=== PATIENT | female | born 2000 | race Caucasian/White ===

== ENCOUNTER 2022-09-27 21:07 | Emergency (ER) | payer OTHER ==
[2022-09-27 23:27] LABS: SARS-COV-2 RT PCR NEGATIVE (NEGATIVE)
--- NOTE | 2022-09-27 23:36 | EDPHYS ---
Physician Documentation [facility] Name: Ruba Moya Age: 22 yrs Sex: Female : 2000 Arrival Date: 09/27/2022 Time: 21:11 Bed DIS3 Private MD: ED Physician Jerome Gould HPI: 09/27 22:10 This 22 yrs old Female presents to ER via Ambulatory with complaints of Fever, Runny cp Nose, Headache. 22:10 The patient reports fever, not measured (subjective). cp 22:10 Onset: The symptoms/episode began/occurred 2 day(s) ago. Associated signs and symptoms: cp Pertinent positives: cough, headache, runny nose, sore throat. Severity of symptoms: in the emergency department the symptoms are unchanged despite home interventions. 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 - Social history:: Smoking status: Reported history of juuling and/or vaping. ROS: 22:15 Constitutional: Negative for fever, poor PO intake. cp 22:15 Eyes: Negative for injury, pain, redness, and discharge. cp 22:15 ENT: Positive for sore throat, Negative for drainage from ear(s), ear pain, difficulty swallowing, difficulty handling secretions. 22:15 Respiratory: Positive for cough, Negative for shortness of breath, wheezing. 22:15 Abdomen/GI: Negative for abdominal pain, vomiting, diarrhea, constipation. 22:15 : Negative for urinary symptoms. 22:15 Skin: Negative for rash. 22:15 Neuro: Positive for headache, Negative for altered mental status, weakness. 22:15 All other systems are negative. Exam: 22:20 Head/Face: Normocephalic, atraumatic. cp 22:20 Constitutional: The patient appears in no acute distress, alert, awake, non-toxic, well developed, well nourished. 22:20 Eyes: Periorbital structures: appear normal, Conjunctiva: normal, no exudate, no cp injection, Sclera: no appreciated abnormality, Lids and lashes: appear normal, bilaterally. 22:20 ENT: External ear(s): are unremarkable, Ear canal(s): are normal, clear, TM's: dullness, bilaterally, Nose: is normal, Mouth: Lips: moist, Oral mucosa: moist, Posterior pharynx: Airway: no evidence of obstruction, patent, Tonsils: with erythema, no enlargement, no exudate, erythema, that is mild, exudate, is not appreciated. 22:20 Neck: ROM/movement: is normal, is supple, without pain, no range of motions limitations, no meningismus, Lymph nodes: no appreciated lymphadenopathy. 22:20 Chest/axilla: Inspection: normal. 22:20 Cardiovascular: Rate: tachycardic, Rhythm: regular. 22:20 Respiratory: the patient does not display signs of respiratory distress, Respirations: normal, no use of accessory muscles, no retractions, labored breathing, is not present, Breath sounds: decreased breath sounds, are not appreciated, stridor, is not appreciated, + upper airway congestion. wheezing: is not appreciated. 22:20 Abdomen/GI: Inspection: gravid appearance, is noted. 22:20 Back: CVA tenderness, is absent. 22:20 Skin: no rash present. Vital Signs: 21:16 BP 128 / 80; Pulse 109; Resp 17; Temp 98.8(O); Pulse Ox 99% on R/A; Weight 68.49 kg ll3 (R); Height 5 ft. 6 in. (167.64 cm); 21:16 Body Mass Index 24.37 (68.49 kg, 167.64 cm) ll3 MDM: 21:25 Patient medically screened. cp 22:30 Differential diagnosis: viral Infection, bacterial infection, bronchitis, pneumonia cp UTI, gastroenteritis, meningitis. 23:35 Data reviewed: vital signs, nurses notes, lab test result(s). cp 23:35 Counseling: I had a detailed discussion with the patient and/or guardian regarding: the cp historical points, exam findings, and any diagnostic results supporting the discharge/admit diagnosis, lab results, to return to the emergency department if symptoms worsen or persist or if there are any questions or concerns that arise at home. ED course: VSS. Patient appears non-toxic and no signs of respiratory distress. Will discharge to home for continued monitoring. 09/27 22:09 Order name: Strep; Complete Time: 23:32 cp 09/27 22:09 Order name: COVID-19/FLU A+B; Complete Time: 23:32 cp 09/27 23:33 Interpretation: Normal except: INFLUENZA A POSITIVE. cp 09/27 23:01 Order name: Throat Culture EDMS 09/27 23:32 Order name: FHT's; Complete Time: 00:04 cp Administered Medications: 09/28 00:04 Drug: Tamiflu (oseltamivir) 75 mg Route: PO; ll3 Disposition Summary: 09/27/22 23:35 Discharge Ordered Location: Home cp Problem: new cp Symptoms: are unchanged cp Condition: Stable cp Diagnosis - Influenza due to identified novel influenza A virus with other respiratory cp manifestations Followup: cp - With: Private Physician - When: 2 - 3 days - Reason: Worsening of condition Discharge Instructions: - Discharge Summary Sheet cp - Influenza, Adult cp Forms: - Medication Reconciliation Form cp - Thank You Letter cp - Antibiotic Education cp - Prescription Opioid Use cp Prescriptions: - Tamiflu 75 mg Oral Capsule - take 1 capsule by ORAL route every 12 hours for 5 days; 10 capsule; Refills: 0, cp Product Selection Permitted Signatures: Dispatcher [employer] EDMS David Ward PA PA cp Loubet, Lynsea, RN RN ll3
--- NOTE | 2022-09-27 23:36 | ER ---
Nurse's Notes [facility] Name: Ruba Moya Age: 22 yrs Sex: Female : 2000 Arrival Date: 09/27/2022 Time: 21:11 Bed DIS3 Private MD: Diagnosis: Influenza due to identified novel influenza A virus with other respiratory manifestations Presentation: 09/27 21:16 Chief complaint: Patient states: C/o runny nose, sore throat, H/A, fevers since 3 friday. Coronavirus screen: Vaccine status: Patient reports being unvaccinated. cough unrelated to allergies, fever, headache, muscle pain, runny nose, sore throat. Ebola Screen: No symptoms or risks identified at this time. Initial Sepsis Screen: Does the patient meet any 2 criteria? No. Patient's initial sepsis screen is negative. Does the patient have a suspected source of infection? No. Patient's initial sepsis screen is negative. Risk Assessment: Do you want to hurt yourself or someone else? Patient reports no desire to harm self or others. Onset of symptoms was September 24, 2022. 21:16 Method Of Arrival: Ambulatory 3 21:16 Acuity: CHRISTIANO 3 ll3 Triage Assessment: 21:19 Headache History: The patient has had previous headaches and this one is similar to 3 previous episodes. General: Appears in no apparent distress. uncomfortable, Behavior is calm, cooperative. General: Reports fever for 1-2 days. Pain: Denies pain. Pain: Pain Pain began Also complains of. Neuro: Level of Consciousness is awake, alert, obeys commands, Oriented to person, place, time, situation, Reports headache in right in left parietal area. Respiratory: Reports cough that is productive, Respiratory effort is even, unlabored, Respiratory pattern is regular, symmetrical. Derm: Skin is pink, warm \T\ dry. 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 - Social history:: Smoking status: Reported history of juuling and/or vaping. Screenin/26 00:04 Abuse screen: Denies threats or abuse. Denies injuries from another. Nutritional ll3 screening: No deficits noted. Tuberculosis screening: No symptoms or risk factors identified. Fall Risk None identified. Vital Signs: 09/27 21:16 BP 128 / 80; Pulse 109; Resp 17; Temp 98.8(O); Pulse Ox 99% on R/A; Weight 68.49 kg ll3 (R); Height 5 ft. 6 in. (167.64 cm); 21:16 Body Mass Index 24.37 (68.49 kg, 167.64 cm) ll3 Vitals: 09/28 00:04 Heart Tones 146. ll3 ED Course: 09/27 21:11 Patient arrived in ED. bp1 21:15 David Ward PA is PHCP. cp 21:15 Jerome Gould MD is Attending Physician. cp 21:19 Triage completed. ll3 21:19 Arm band placed on. ll3 22:36 Strep Sent. tw5 22:36 COVID-19/FLU A+B Sent. tw5 23:30 Throat Culture Sent. tw5 09/28 00:04 Patient has correct armband on for positive identification. Bed in low position. Call ll3 light in reach. Side rails up X 1. 00:04 No provider procedures requiring assistance completed. IV discontinued, intact, ll3 bleeding controlled, No redness/swelling at site. Pressure dressing applied. Administered Medications: 00:04 Drug: Tamiflu (oseltamivir) 75 mg Route: PO; ll3 Medication: 00:05 VIS not applicable for this client. ll3 Outcome: 09/27 23:35 Discharge ordered by . cp 09/28 00:04 Discharged to home ambulatory, with significant other. ll3 Condition: stable Discharge instructions given to patient, significant other, Instructed on discharge instructions, follow up and referral plans. medication usage, Demonstrated understanding of instructions, follow-up care, medications, Prescriptions given X 1. 00:05 Patient left the ED. ll3 Signatures: David Ward PA PA cp Paniauga, Brittany bp1 Monet Keene tw5 Korey Negron RN RN ll3
[2022-09-27] MEDS ORDERED: OSELTAMIVIR 75 MG CAP ONE (23:54)
[2022-09-28 00:16] VITALS: BP 128/80; TEMP 98.8; O2SAT 99
== END 2022-09-28 00:05 | disposition home or self-care (01) ==
LOC: ER 21:07
DX: J10.1 Influenza due to other identified influenza virus with other respiratory manifestations (principal); Z20.822 Contact with and (suspected) exposure to COVID-19; Z88.0 Allergy status to penicillin; Z88.1 Allergy status to other antibiotic agents; Z88.5 Allergy status to narcotic agent
CPT/HCPCS: 87070; 87081; 0240U; 99284

== ENCOUNTER 2022-12-04 01:41 | Inpatient (IN) | payer OTHER ==
[~2022-12-04 01:41] MED LIST: LIDOCAINE 1% MPF 30 ML VIAL SQ ONE; OXYTOCIN/LR 20 UNIT/1,000 ML BAG IV SCH
[2022-12-04] MEDS ORDERED: PROMETHAZINE INJ 25 MG/ML AMP IM PRN (02:01)
[2022-12-04] MEDS ORDERED: Ringers Lactate 1,000 ML IV PRN (02:01)
[2022-12-04] MEDS ORDERED: CARBOPROST TROME 250 MCG/ML IM PRN (02:01)
[2022-12-04] MEDS ORDERED: BUTORPHANOL 1 MG/ML INJ IV PRN (02:01)
[2022-12-04] MEDS ORDERED: METHYLERGONOVINE 0.2MG/ML AMP IM PRN (02:01)
[2022-12-04] MEDS ORDERED: FENTANYL CITR 100 MCG/2 ML IV ONE (02:12)
[2022-12-04] MEDS ORDERED: BUPIVACAINE 0.25% PF 10 ML VIAL IJ PRN (02:12)
[2022-12-04] MEDS ORDERED: FENTANYL/BUPIVACAINE/NS/PF 200 MCG/100 ML BAG EP PRN (02:12)
[2022-12-04 02:36] LABS: Absolute Lymphocytes (CBC) 1.5 K/uL (0.7-4.9); Hematocrit 36.1 % (36.0-45.0); Lymphocytes % 10.4 % (15.3-44.8); MCV 88.5 fL (80-100); MPV 8.2 fL (7.6-11.3); RBC Red Blood Cell Count 4.08 M/uL (3.86-4.86)
[2022-12-04 02:43] LABS: RPR (Rapid Plasma Reagin) NON-REACT (NON-REACT)
[2022-12-04 02:59] VITALS: BMI 29.3
[2022-12-04] MEDS ORDERED: Ringers Lactate 1,000 ML IV SCH (03:00)
[2022-12-04 03:54] LABS: Hepatitis B surface AG Interp. Nonreactive (Nonreactive)
--- NOTE | 2022-12-04 11:26 | PREOPHP ---
Date of Admission: 12/04/2022 History Of Present Illness: A 22-year-old primigravida 38 weeks 6 days experienced spontaneous ruptu re of membranes at midnight last night, came in early labor. She is now on Pitocin augmentation. Ce rvical exam shows approximately 3 cm, 70% effaced, vertex, well applied. Fluid clear. FHTs have not shown significant variability, but have shown no decelerations. Baby according to the patient has b een very active during the latter part of the . Family History: Demonstrates a grandmother with stomach ulcers and another grandmother with diabetes . Past Medical History: Patient has had ears, nose, and throat surgery at the age of 8, mostly tubes p laced in ears. Allergies: APPARENTLY, IS ALLERGIC TO OMNICEF AND CODEINE. Social History: She vapes. Medications: She has been taking Nexium in the past for gas and acid reflux. Physical Examination: HEENT: Clear. Pupils equal, round, reactive to light and accommodation. Conjunctivae well perfused . No oral, lingual, or buccal lesions. Chest and Lungs: Have been clear. Heart: Midline, without problems in the past on auscultation. Abdomen: Term size. Extremities: Clear. Pelvic: As stated. Assessment And Plan: Admission talk given. She is strep negative. Rh positive, immune to rubella. KELINC/MODL Voice ID: [id number]
--- NOTE | 2022-12-04 12:08 | PN ---
The Stadol has worn off. Patient is more alert, so is the baby. She has had her epidural. She is n ow 5.5 cm, 90% effaced, vertex, -1 station. Mohsen regularly. She was only on 2 milliunits whe n it was thought she was on 6, now she is on 6 and we will increase that a little bit more as the lab or progresses. She is quite comfortable and in fact she is so numb that she cannot really feel her l egs and cannot feel the contractions. We will probably reduce the maintenance dose on the epidural s lightly as she gets closer to delivery. Her blood pressures were 88/50 right now, she is being hydra lori. Obviously, the epidural had some effect on that and we will try to get her blood pressures back to a more normal range, but she and her baby looked good. DAMIEN/SIMBA Voice ID: [id number] Report ID: [id number]
[2022-12-04] MEDS ORDERED: NA CIT/CITRIC AC 30 ML ORAL UDC ONE (12:33)
[2022-12-04] MEDS ORDERED: FAMOTIDINE 20 MG/2 ML VIAL IV ONE (12:33)
[2022-12-04] MEDS ORDERED: METOCLOPRAMIDE 10 MG/2mL INJ ONE (12:33)
[2022-12-04] MEDS ORDERED: CEFAZOLIN SODIUM 2 GM/VIAL ONE (12:41)
[2022-12-04] MEDS ORDERED: NA CHLORIDE 0.9% 100 ML ONE (12:42)
[2022-12-04] MEDS ORDERED: LIDOCAINE 2% W/EPI 1:200,000 MPF 20 ML VIAL IM ONE (12:51)
[2022-12-04] MEDS ORDERED: OXYTOCIN 10 UNIT/ML ML ONE ×3 (13:11→23:58)
[2022-12-04] MEDS ORDERED: NS 0.9% VIAL 10 ML ONE (13:27)
[2022-12-04] MEDS ORDERED: MORPHINE SULFATE/PF 1 MG/ML (10 ML AMP) ONE (13:27)
[2022-12-04] MEDS ORDERED: BISACODYL 10 MG RECTAL SUPP PR PRN (13:48)
[2022-12-04] MEDS ORDERED: KETOROLAC 30 MG/ML INJ IM PRN (13:48)
[2022-12-04] MEDS ORDERED: ONDANSETRON 4 MG/2 ML VIAL IV PRN (13:48)
[2022-12-04] MEDS ORDERED: ACETAMINOPHEN 500 MG TAB PO PRN ×2 (13:48)
[2022-12-04] MEDS ORDERED: Oxycodone HCl/Acetaminophen 1 TAB TAB PO PRN (13:48)
[2022-12-04] MEDS ORDERED: DIPHENHYDRAMINE 25 MG TAB/CAP PO PRN (13:48)
[2022-12-04] MEDS ORDERED: IBUPROFEN 200 MG TAB PO PRN (13:48)
[2022-12-04] MEDS ORDERED: ONDANSETRON 4 MG (ODT) TAB PO PRN (13:48)
[2022-12-04] MEDS ORDERED: D5LR 1,000 ML with OXYTOCIN 20 UNIT IV SCH ×2 (14:00)
[2022-12-04] MEDS: KETOROLAC 30 MG/ML INJ IV PRN (16:23)
--- NOTE | 2022-12-04 16:29 | PN ---
Patient is about 6.5 cm, with baby still high in a straight occiput posterior. Scalp electrode has b een placed, although variability really still looks pretty good. We will start pelvic rocking. We n eed to continue to increase the Pitocin. If the baby rotates, I think things will go much quicker. DAMIEN/SIMBA Voice ID: [id number] Report ID: [id number]
[2022-12-04 17:51] VITALS: O2SAT 100
[2022-12-04] MEDS ORDERED: CEFAZOLIN SODIUM 2 GM in NA CHLORIDE 0.9% 100 ML IVPB ONE (21:00)
[2022-12-04] MEDS: OXYTOCIN/LR 20 UNIT/1,000 ML BAG IV SCH (23:00)
--- NOTE | 2022-12-05 | OP ---
Surgeon: Arturo Hammer MD Procedure In Detail: A 22-year-old primigravida. Spontaneous rupture of membranes at midnight last night, came to Labor and Delivery area, was in early labor. Only 1 cm dilated. Was started on Pitoci n, received Stadol 1 mg IV, Phenergan 25 mg IM initially. At approximately 3-4 cm requested and rece ived epidural anesthesia. The baby was noted to be occiput posterior and never really descended belo w -1 at the most. The bones of the head, probably -2 station, but well applied. The baby started davis ving decelerations that could be late, although they were not deep and there was variability during t he contractions. The patient progressed to approximately 6.5 to 7 cm, but the vertex never descended . It was decided because of nonreassuring heart rate to proceed with section. Epidural ane sthesia, which patient had, was used quite effectively. Dr. Marie for anesthesia. Dr. Lopez for administrative assistant coordinator surgeon. The patient was taken to surgery and prepped and draped. A Pfannenstiel incisio n was created after time-out was performed. The incision was carried to the fascia and the fascia in cised and incision carried transversely bilaterally with Begum scissors. Anterior fascial plane was d eveloped with both blunt and sharp dissection and underlying rectus muscle and peritoneum e ntered. Low transverse uterine incision created. Approximately 6.5 pound male was delivered, occiput posterior and asynclitic. The cord was wrapped around the baby's body at least twice. Baby was handed off to Pediatrics for resuscitation. Apgars to be assigned by Pediatrics. It was actual ly necessary to intubate the baby and baby responded quite quickly to resuscitation efforts. Dr. Vince srivastava intubated and removed the tube within a few minutes as baby responded quickly and is now in the nursery, crying and looking around. Cord blood specimen was obtained. The placenta was removed manu ally. Uterus was exteriorized. Uterus was closed with a running locked stitch of 1 chromic followed by a second [id number] stitch in the left angle for complete hemostasis. Estimated blood loss during the procedure 700 to 750 cc. Uterus replaced in the peritoneal cavity. Gutters cleared off c lot and blood. Incision line inspected again. No further bleeding. The rectus muscles were reappro ximated using 2 stitches of 0 Vicryl. One Vicryl was used to close the fascia running from either an gle to midline. 2-0 plain used to close subcutaneous tissue. Kihei used for the skin. The patien t had been given 2 g of Ancef prior to the procedure and will be given 2 g postoperatively [address] Tolerated all procedures well. Transferred back to her room in good condition. Final Diagnoses: Term intrauterine . Nonreassuring heart tones. Primary se ction. Epidural anesthesia. Drifton resuscitation. NBC/MODL Voice ID: [id number] Report ID: [id number]
[2022-12-05] MEDS: KETOROLAC 30 MG/ML INJ IV PRN (00:34)
--- NOTE | 2022-12-05 07:13 | PN ---
The patient is very alert this morning. She has already been up and moving around the room. Baby is breast feeding. Baby is crying right now and looks very good. No reported problems. H and H with expected change. Pulse is low to high, but lochia is normal. I do not suspect anything as far as bl ood loss being the cause. We will discontinue her Apple and IV around mid day. Full postoperative t alk given. We will begin p.o. intake when the patient has an appetite. Right now, she is just thirs ty. Cleaning of the incision, importance of ambulation discussed. Post talk as far as report ing fever, severe pain, heavy bleeding when she goes home. If all goes well, we will probably send h er home tomorrow afternoon. Returning next week to my office for staple removal. She has had her Td ap shot already. She has no post epidural problems. Doing quite well. DAMIEN/SIMBA Voice ID: [id number] Report ID: [id number]
[2022-12-05] MEDS: OXYTOCIN/LR 20 UNIT/1,000 ML BAG IV SCH (07:14)
[2022-12-05] MEDS ORDERED: MAGNESIUM HYDROXIDE 8% 30 ML PO PRN (13:48)
[2022-12-05] MEDS: Oxycodone HCl/Acetaminophen 1 TAB TAB PO PRN ×2 (14:07→21:10)
[2022-12-05 21:09] LABS: Absolute Lymphocytes (CBC) 0.6 K/uL (0.7-4.9); Hematocrit 32.7 % (36.0-45.0); Lymphocytes % 4.2 % (15.3-44.8); MCV 88.2 fL (80-100); MPV 7.7 fL (7.6-11.3); RBC Red Blood Cell Count 3.71 M/uL (3.86-4.86)
[2022-12-05] MEDS ORDERED: CEFTRIAXONE 1000 MG/VIAL IM ONE (21:14)
[2022-12-05] MEDS ORDERED: CEFTRIAXONE 1000 MG/VIAL ONE (21:15)
[2022-12-05] MEDS ORDERED: NA CHLORIDE 0.9% 0 ML ONE (21:16)
[2022-12-05] MEDS ORDERED: LIDOCAINE 1% MPF 5 ML VIAL ONE (21:19)
[2022-12-06] MEDS: Oxycodone HCl/Acetaminophen 1 TAB TAB PO PRN (05:43)
[2022-12-06] MEDS: IBUPROFEN 600 MG TAB PO PRN ×2 (07:22→13:10)
--- NOTE | 2022-12-06 07:59 | PN ---
The patient was noted to have slight tachycardia yesterday, at one point it went to 123. All temperatures have been normal at that point. Sometime slightly thereafter, though her temperature spiked to over 100. CBC was ordered. H and H stayed the same, but white count was 14,000 on admission, had gone to slightly over 15,000. At that point, the patient was started on Rocephin 1 g IM, Cleocin __300 mg p.o. q.8 hours. Her calves are normal. No signs of any phlebitis. Her incision looks good. She is breathing well. Her breasts are not engorged. She is taking fluids well, feels relatively good. Her 6-year-old had a viral infection prior to her coming to the hospital, but I do not think that is what we were dealing with. We will aggressively treat what is probably a postoperative endometritis. The goal is to go 24 hours without any temperature over____100 degrees and then we will send the patient home at that point. She knows that could be this time tomorrow or it could be later depending upon what her temperatures do. Full discussion with the patient. She has no complaints or problems. She knows to push fluids on herself. Right now, we have a Hep-Lock. We will try to avoid starting another IV unless necessary. DAMIEN/SIMBA Voice ID: [id number] Report ID: [id number] GERRY
[2022-12-06] MEDS: METHYLERGONOVINE 0.2 MG TAB PO PRN ×4 (08:03→20:46)
[2022-12-06] MEDS: CEFTRIAXONE 1,000 MG in NA CHLORIDE 0.9% 50 ML IVPB SCH ×2 (08:46→20:46)
[2022-12-06] MEDS ORDERED: CEFTRIAXONE 1000 MG/VIAL ONE ×2 (20:05→21:12)
[2022-12-06] MEDS ORDERED: LIDOCAINE 2% MPF 5 ML VIAL ONE (21:12)
[2022-12-06] MEDS ORDERED: CEFTRIAXONE 1000 MG/VIAL IM ONE (21:21)
[2022-12-07] MEDS: IBUPROFEN 600 MG TAB PO PRN ×2 (03:49→09:29)
[2022-12-07 07:26] VITALS: TEMP 97.7
--- NOTE | 2022-12-07 07:56 | DS ---
Hospital Course: A 22-year-old primigravida 38 weeks 6 days, experienced spontaneous rupture of bret pak, came to Labor and Delivery area for assessment. Noted to have gross rupture of membranes, 1 c m vertex and in early labor. Started on Pitocin augmentation. Received Stadol IV, Phenergan IM 1 do se, and approximately 3-4 cm epidural anesthesia. The patient was noted to be occiput posterior, abo ut -1, -2 station, progressed to 7 cm, but never descended the vertex. Showed no progress in labor p reji heart tones became non-reassuring, therefore a section was discussed and agreed up on. The section was performed under epidural anesthesia. It was quite effective. Estimate d blood loss 700 to 750 cc. Baby was born and needed resuscitation, is doing quite well at this poin t. Patient is Rh negative, immune to Rubella. Postoperatively, developed a temperature elevation wi th mild leukocytosis of 15,000. Incision looked good. The entire time the legs were clear. Lungs w ere basically clear. She was started on antibiotics and now is on 24 hours or more without temperatu re elevation over 100 degrees. She is requesting dismissal this morning or early afternoon. We will get 1 more dose of Rocephin 1 g IM. We will send her home with Cleocin 300 mg p.o. q.6 hours for 5 additional days. She is to report any temperature elevation of 100 degrees or greater, severe pain, heavy bleeding, or any other type of abnormalities. She will call the office on Friday. We will see her on Friday or for staple removal. Baby has done quite well in the postoperative ila od and patient has no complaints or problems. She is last taking Motrin for analgesia, but we will g geovani her some tramadol to take with her from the local pharmacy in case she needs something stronger. Final Diagnoses: Term intrauterine , primary section, epidural anesthesia, postope rative mild endometritis, now resolved. DAMIEN/DERIANL Voice ID: [id number] Report ID: [id number]
[2022-12-07] MEDS ORDERED: CEFTRIAXONE 1000 MG/VIAL IM ONE (10:00)
[2022-12-07] MEDS ORDERED: WATER FOR INJ,STERILE 0 ML ONE (10:02)
[2022-12-07] MEDS ORDERED: LIDOCAINE 1% MPF 5 ML VIAL IM ONE (11:00)
[2022-12-07 12:02] VITALS: BP 124/72
== END 2022-12-07 11:30 | disposition home or self-care (01) | DRG 788 ==
LOC: 2ND-WC 01:41
PROVIDERS: ADMIT Specialist; ATTEND Specialist
PROC: 3E0234Z Introduction of Serum, Toxoid and Vaccine into Muscle, Percutaneous Approach (ICD-10-PCS; 2022-12-04)
PROC: 10D00Z1 Extraction of Products of Conception, Low, Open Approach (ICD-10-PCS; principal; 2022-12-04 13:09)
DX: O76 Abnormality in fetal heart rate and rhythm complicating labor and delivery (principal); O69.89X0 Labor and delivery complicated by other cord complications, not applicable or unspecified; Z3A.38 38 weeks gestation of pregnancy; Z37.0 Single live birth; Z23 Encounter for immunization; O75.4 Other complications of obstetric surgery and procedures; N71.9 Inflammatory disease of uterus, unspecified
CPT/HCPCS: 36415; 85014; 85025; 86592; 86850; 86900; 86901; 87340; 88307; A4216; J0595; J2001; J2210; J2550; J2590; J2765; J3010; J7120; J7121

== ENCOUNTER → 2023-11-28 | Emergency (ER) | payer SELFPAY ==
[2023-11-28 12:18] LABS: SARS-CoV-2 Antigen Rapid Res Positive (Negative)
--- NOTE | 2023-11-28 13:02 | EDPHYS ---
Physician Documentation [facility] Name: Ruba Moya Age: 23 yrs Sex: Female : 2000 Arrival Date: 11/28/2023 Time: 10:56 Bed DIS3 Private MD: ED Physician Jesse Garcia HPI: 11/28 11:07 This 23 yrs old Other Female presents to ER via Unassigned with complaints of Covid sp4 Exposure. 11:38 23-year-old female presents to the emergency room for evaluation for acute viral sp4 illness. Patient states she has had nasal congestion starting today. One of the patient's family is positive with COVID. Historical: - Allergies: 11:15 Omnicef; ll1 11:15 Codeine; ll1 11:15 PENICILLINS; ll1 - PMHx: 11:15 None; ll1 - PSHx: 11:15 ENT SX; ll1 - Immunization history:: Adult Immunizations up to date. - Social history:: Smoking status: Patient denies any tobacco usage or history of. - Family history:: not pertinent. ROS: 11:42 Constitutional: Negative for fever, chills, and weight loss, Eyes: Negative for injury, sp4 pain, redness, and discharge, ENT: Negative for injury, pain, positive for congestion 11:42 All other systems are negative, Exam: 11:42 Constitutional: This is a well developed, well nourished patient who is awake, alert, sp4 and in no acute distress. Head/Face: Normocephalic, atraumatic. Eyes: Pupils equal round and reactive to light, extra-ocular motions intact. Lids and lashes normal. Conjunctiva and sclera are not injected. Cornea within normal limits. Periorbital areas with no swelling, redness, or edema. ENT: Nares patent. No nasal discharge, no septal abnormalities noted. Tympanic membranes are normal and external auditory canals are clear. Oropharynx with no redness, swelling, or masses, exudates, or evidence of obstruction, uvula midline. Mucous membranes moist. Neck: Trachea midline, no thyromegaly or masses palpated, and no cervical lymphadenopathy. Supple, full range of motion without nuchal rigidity, or vertebral point tenderness. Chest/axilla: Normal chest wall appearance and motion. Nontender with no deformity. No lesions are appreciated. Cardiovascular: Regular rate and rhythm with a normal S1 and S2. No gallops, murmurs, or rubs. Normal PMI, no JVD. No pulse deficits. Respiratory: Lungs have equal breath sounds bilaterally, clear to auscultation and percussion. No rales, rhonchi or wheezes noted. No increased work of breathing, no retractions or nasal flaring. Abdomen/GI: Soft, non-tender, with normal bowel sounds. No distension or tympany. No guarding or rebound. No evidence of tenderness throughout. Back: No spinal tenderness. No costovertebral tenderness. Skin: Warm, dry with normal turgor. Normal color with no rashes, no lesions, and no evidence of cellulitis. MS/ Extremity: Pulses equal, no cyanosis. Neurovascular intact. Full, normal range of motion. Neuro: Awake and alert, GCS 15, oriented to person, place, time, and situation. Cranial nerves II-XII grossly intact. Motor strength 5/5 in all extremities. Sensory grossly intact. Psych: Awake, alert, with orientation to person, place and time. Behavior, mood, and affect are within normal limits Vital Signs: 11:16 BP 128 / 95; Pulse 90; Resp 17; Temp 98.1; Pulse Ox 100% on R/A; Weight 79.38 kg; ll1 MDM: 12:36 Patient medically screened. sp4 13:00 Differential Diagnosis altered mental status, sepsis, flu. Data reviewed: vital signs, sp4 nurses notes, lab test result(s), Flu: negative. ED course: COVID positive, will prescribe symptomatic medications, ibuprofen, dextromethorphan, and Phenergan. 11/28 11:01 Order name: SARS RAPID; Complete Time: 12:26 ms3 11/28 11:35 Order name: Flu; Complete Time: 12:50 hb Administered Medications: No medications were administered Disposition Summary: 11/28/23 13:01 Discharge Ordered Notes: 5 day home quarantine advised Location: Home sp4 Problem: new sp4 Symptoms: are unchanged sp4 Condition: Stable sp4 Diagnosis - Other specified viral diseases sp4 - Nasal congestion sp4 - COVID-19 sp4 Followup: sp4 - With: Private Physician - When: As needed - Reason: Discharge Instructions: - Discharge Summary Sheet sp4 - COVID-19: Keep Your Baby Healthy and Safe - [facility] (10/05/2021) sp4 Forms: - Patient Portal Instructions sp4 Prescriptions: - dextromethorphan-guaifenesin 60-1,200 mg Oral Tablet, Extended Release 12 hr - take 1 tablet ORAL route every 12 hours PRN cough; 42 tablet; Refills: 0, sp4 Product Selection Permitted - Ibuprofen 800 mg Oral Tablet - take 1 tablet ORAL route every 8 hours As needed take with food; 30 tablet; sp4 Refills: 0, Product Selection Permitted - promethazine 25 mg Oral tablet - take 1 tablet ORAL route every 6 hours As needed PRN nausea; 30 tablet; sp4 Refills: 0, Product Selection Permitted Signatures: Dispatcher [employer] Gini Kearney RN RN ll1 Jesse Garcia MD MD sp4
--- NOTE | 2023-11-28 13:02 | ER ---
Nurse's Notes [facility] Name: Ruba Moya Age: 23 yrs Sex: Female : 2000 Arrival Date: 11/28/2023 Time: 10:56 Bed DIS3 Private MD: Diagnosis: Other specified viral diseases;Nasal congestion;COVID-19 Presentation: 11/28 11:16 Chief complaint: Patient states: Slight nasal congestion, exposed to covid at home. ll1 Coronavirus screen: Client denies travel out of the [place] in the last 14 days. runny nose, Client presents with at least one sign or symptom that may indicate coronavirus-19. Standard/surgical mask placed on the client. Ebola Screen: Patient denies travel to an Ebola-affected area in the 21 days before illness onset. Initial Sepsis Screen: Does the patient meet any 2 criteria? No. Patient's initial sepsis screen is negative. Does the patient have a suspected source of infection? Yes: Productive cough/pneumonia. Risk Assessment: Do you want to hurt yourself or someone else? Patient reports no desire to harm self or others. Onset of symptoms was November 27, 2023. 11:16 Method Of Arrival: Ambulatory ll1 11:16 Acuity: CHRISTIANO 4 ll1 Historical: - Allergies: 11:15 Omnicef; ll1 11:15 Codeine; ll1 11:15 PENICILLINS; ll1 - PMHx: 11:15 None; ll1 - PSHx: 11:15 ENT SX; ll1 - Immunization history:: Adult Immunizations up to date. - Social history:: Smoking status: Patient denies any tobacco usage or history of. - Family history:: not pertinent. Screenin:15 [facility] ED Fall Risk Assessment (Adult) Score/Fall Risk Level 0 - 2 = Low Risk hb Oriented to surroundings, Maintained a safe environment. Abuse screen: Denies threats or abuse. Denies injuries from another. Nutritional screening: No deficits noted. Tuberculosis screening: No symptoms or risk factors identified. Assessment: 11:30 General: Appears in no apparent distress. Behavior is calm, cooperative. Pain: Denies hb pain. Neuro: Level of Consciousness is awake, alert, obeys commands, Oriented to person, place, time, situation. Cardiovascular: Patient's skin is warm and dry. Respiratory: Respiratory effort is even, unlabored, Respiratory pattern is regular, symmetrical. 13:00 Reassessment: Patient appears in no apparent distress at this time. Patient and/or hb family updated on plan of care and expected duration. Pain level reassessed. Patient is alert, oriented x 3, equal unlabored respirations, skin warm/dry/pink. Vital Signs: 11:16 BP 128 / 95; Pulse 90; Resp 17; Temp 98.1; Pulse Ox 100% on R/A; Weight 79.38 kg; ll1 ED Course: 10:57 Patient arrived in ED. rg4 11:01 Freddy Macario DO is Attending Physician. ms3 11:07 Attending Physician role handed off by Freddy Macario DO sp4 11:07 Jesse Garcia MD is Attending Physician. sp4 11:15 Arm band placed on Patient placed in an exam room, on a stretcher. ll1 11:15 Patient has correct armband on for positive identification. Provided Education on: hb TESTS, RESULT TIMES. 11:15 No provider procedures requiring assistance completed. Patient did not have IV access hb during this emergency room visit. 11:17 Triage completed. ll1 Administered Medications: No medications were administered Medication: 13:00 VIS not applicable for this client. hb Outcome: 13:01 Discharge ordered by . sp4 13:15 Discharged to home ambulatory, hb 13:15 Condition: stable 13:15 Discharge instructions given to patient, Instructed on discharge instructions, follow up and referral plans. medication usage, Demonstrated understanding of instructions, follow-up care, medications, Prescriptions given X 3, 13:15 Patient left the ED. hb Signatures: Yolis Ivan, RN Kelin Hensley rg4 Gini Nicole RN RN ll1 Freddy Macario DO DO ms3 Jesse Garcia MD MD sp4
[2023-11-28 14:29] VITALS: BP 128/95; TEMP 98.1; O2SAT 100
== END ==
LOC: ER 10:56
DX: U07.1 COVID-19 (principal); B33.8 Other specified viral diseases
CPT/HCPCS: 36415; 87804; 87811